=== PATIENT | male | born 1995 | race African-American/Black ===

== ENCOUNTER 2021-04-04 09:40 | Emergency (ER) | payer OTHER, SELFPAY ==
[2021-04-04 10:18] VITALS: PULSE 85; RESP 14; TEMP 36.7; O2SAT 99; BMI 37.5
--- NOTE | 2021-04-04 10:55 | HMH.EDUTC ---
[facility] [place] Clinical Impression: Viral syndrome, Exposure to COVID-19 virus Disposition: Home, Self-Care Condition on Discharge: Good Instructions: DI for COVID-19 (Suspected or Confirmed ), Preventing the Spread of Coronavirus Discharge Instructions Additional Instructions: Drink plenty of fluids. Take tylenol for pain or fever. Return if you begin to have difficulty breathing. Follow up with your regular doctor. GO TO THE ER FOR ANY WORSENING SYMPTOMS Quarantine until you know the results of your covid-19 test. If it is positive, the health department should call you and give you further instructions about your length of Quarantine and other things. Notify your school or workplace of your results and follow their instructions regarding return to work/school. Prescriptions: Brompheniramine/Pseudoephed/Dm [Bromfed Dm Cough Syrup] 5 ml PO Q6HP PRN #240 ml PRN Reason: Cough Transmission Status: Received by [facility] [facility] #[id number] Ondansetron [Zofran 4mg ODT] 4 mg PO Q8HP PRN #20 tab PRN Reason: Nausea Transmission Status: Received by [facility] [facility] #[id number] Referrals: Provider,Referral, [Primary Care Provider] - Forms: Work/School Release Time of Disposition: 11:01 Medical Decision Making - Medical Records Medical records reviewed: No: I reviewed the patient's medical records. - Valeriano Inquiry Pt receiving controlled substance: No Vital Signs: 04/04/21 10:18 04/04/21 10:57 Temperature 98.1 F 98.3 F Temperature Source Oral Pulse Rate 85 Pulse Rate [Left] 85 Respiratory Rate 14 16 Blood Pressure 0/0 L 02 Sat by Pulse Oximetry 99 [facility] [place] HPI - General Stated complaint: Covid test; sore throat; cough Time Seen by Provider: 04/04/21 10:56 Mode of Arrival: Ambulatory Source of Information: Patient Limitations: No Limitations Description of Symptoms (Recalled from Triage Doc. by RN): COVID TEST HEENT Symptoms (Recalled from RN notes): No Resp Symptoms (Recalled from RN notes): No Skin Symptoms (Recalled from RN notes): No MS Symptoms (Recalled from RN notes): No Functional Status (Recalled from RN notes): NA - History of Present Illness Provider Complaint: He states that for the past 2 days he has had nasal drainage, scratchy throat, chilling and body aches. He was exposed to covid-19 about 6 days ago. - Related Data Previous Rx's Medication Instructions Recorded Brompheniramine/Pseudoephed/Dm 5 ml PO Q6HP PRN #240 ml 04/04/21 [Bromfed Dm Cough Syrup] Ondansetron [Zofran 4mg ODT] 4 mg PO Q8HP PRN #20 tab 04/04/21 - Worker's Comp Is this a Worker's Comp case?: No [facility] History - Hepatitis A Screen Drug use history?: No High risk sexual behaviors?: No History of sexually transmitted infection?: No Currently employed?: No Childcare worker?: No Do you have indoor plumbing?: Yes Do you have electricity?: Yes Attestation statement:: This patient has been screened for Hepatitis A risk factors. I have reviewed the patient's past medical history: Yes ROS Obtained: Yes All systems reviewed & no additional complaints - Constitutional Constitutional: Reports system reviewed and no additional complaints, except as docu - Eyes Eyes: Reports system reviewed and no additional complaints, except as docu - ENT Ears, Nose, Mouth, and Throat: Reports system reviewed and no additional complaints, except as docu - Cardiovascular Cardiovascular: Reports system reviewed and no additional complaints, except as docu - Respiratory Respiratory: Reports system reviewed and no additional complaints, except as docu - Gastrointestinal Gastrointestingal: Reports: system reviewed and no additional complaints, except as docu Physical Exam - General General appearance: alert, in no apparent distress - Head Head exam: atraumatic, normocephalic, normal inspection - Eye Eye exam: Present: normal appearance, PERRL, EOMI - ENT ENT exam: Prese
[2021-04-04 10:57] VITALS: BP 0/0; PULSE 85; RESP 16; TEMP 36.8
== END 2021-04-04 11:08 | disposition home or self-care (01) ==
PROVIDERS: Emergency Provider Nurse Practitioner Family
DX: B34.9 Viral infection, unspecified (principal); Z20.822 Contact with and (suspected) exposure to COVID-19
CPT/HCPCS: 99202; G0463; U0003

== ENCOUNTER 2022-10-25 16:14 | Emergency (ER) | payer MEDICAID, SELFPAY ==
[2022-10-25 16:45] VITALS: BP 157/95; PULSE 100; RESP 20; TEMP 38.3; O2SAT 98; BMI 44.4
--- NOTE | 2022-10-25 16:51 | EXP.UTC ---
Discharge Plan Disposition Patient Disposition: Home, Self-Care Condition: Good Prescriptions Prescriptions: New methylprednisolone 4 mg Tablets,Dose Pack 4 mg PO DIRECTED Qty: 21 0RF [id number]-[id number] [Bromfed DM] 2-30-10 mg/5 mL Syrup 5 ml PO Q6H PRN (Reason: Cough) Qty: 240 0RF amoxicillin-pot clavulanate 875-125 mg Tablet 1 tab PO Q12H Qty: 20 0RF Chloraseptic Throat [place] 1.4 % aerosol,spray 4 spray mucous membrane Q4HP PRN (Reason: sore throat) Qty: 177 0RF Referrals Follow up/Referrals: Provider,Referral, MD [Primary Care Provider] - See instructions Activity Restrictions/Add. Instructions Additional Instructions/Restrictions: Drink plenty of fluids. Take tylenol or ibuprofen for pain or fever. Take the medications as directed. Follow up with your regular doctor. GO TO THE ER FOR ANY WORSENING SYMPTOMS Throw your tooth brush away and get a new one. Don't start the oral steroids until tomorrow, since you had the shot here today. Clinical Impressions Clinical Impression: Strep throat Stand Alone Forms Stand Alone Forms: Work/School Release Instructions Patient Instructions: Strep Throat, DI for Strep Throat Discharge ED Provider: Benoit Gonzalez [facility] General Stated complaint: congestion,sore throat,Congestion Time Seen by Provider: 10/25/22 16:51 History of Present Illness Provider Complaint: He states that for the past 2 days he has had a worsening sore throat, chills, and malaise. He states that he feels like he has strep throat and he has been exposed to strep throat. Related Data Previous Rx's Medication Instructions Recorded amoxicillin 875 mg-potassium 1 tab PO Q12H #20 tabs 10/25/22 clavulanate 125 mg tablet thkjqceokslcuqd-ncgorhipcakaknz-YX 5 ml PO Q6H PRN Cough #240 mL 10/25/22 2 mg-30 mg-10 mg/5 mL oral syrup (Bromfed DM) methylprednisolone 4 mg tablets in 4 mg PO DIRECTED #21 tabs 10/25/22 a dose pack phenol 1.4 % mucosal aerosol spray 4 spray mucous membrane Q4HP PRN 10/25/22 (Chloraseptic Throat [place]) sore throat #177 mL Allergies Allergy/AdvReac Type Severity Reaction Status Date / Time No Known Allergies Allergy Verified 10/25/22 17:09 [facility] Disclaimer: The information contained in this section may have been updated after the patient was seen, as this information can be updated by other users. Social History Smoking Status: Never smoker alcohol intake: never current occupational status: employed Travel in the last 8 weeks: None ROS Obtained: Yes All systems reviewed & no additional complaints except as documented Constitutional Constitutional: Reports chills and Reports fever(s) Eyes Eyes: Denies eye discharge ENT Ears, Nose, Mouth, and Throat: Reports as per HPI Cardiovascular Cardiovascular: Denies chest pain Respiratory Respiratory: Denies chest congestion and Reports cough Gastrointestinal Gastrointestingal: Reports nausea; Denies abdominal pain, constipation, cramping, diarrhea or vomiting Musculoskeletal Musculoskeletal: Denies arthralgias Integumentary/Breasts Skin/Breast: Denies rash Neurologic Neurologic: Denies paresthesias Physical Exam General General appearance: alert and in no apparent distress Head Head exam: atraumatic, normocephalic and normal inspection Eye Eye exam: Present normal appearance, PERRL and EOMI ENT ENT exam: Present mucous membranes moist and normal external ear exam Expanded ENT Exam TM/Canal exam: Bilateral TM: erythema and bulging Nose exam: Absent sinus tenderness Mouth exam: Present normal external inspection; Absent drooling Teeth exam: Present normal inspection Throat exam: Present tonsillar erythema, tonsillomegaly and tonsillar exudate Neck Neck exam: Present normal inspection, full ROM and trachea midline; Absent tenderness, meningismus or lymphadenopathy Chest Chest inspection
[2022-10-25 17:00] LABS: UTC Strep Screen (Rapid) Positive (Negative)
[2022-10-25 17:43] VITALS: BP 157/95; PULSE 100; RESP 20; TEMP 38.3; O2SAT 98
== END 2022-10-25 17:42 | disposition home or self-care (01) ==
PROVIDERS: Emergency Provider Nurse Practitioner Family
DX: J02.0 Streptococcal pharyngitis (principal); R53.81 Other malaise; R50.9 Fever, unspecified
CPT/HCPCS: 96372; 87880; 99212; 99214; G0463

== ENCOUNTER 2023-11-02 16:49 | Emergency (ER) | payer MEDICAID, SELFPAY ==
[2023-11-02 16:55] VITALS: BP 143/87; PULSE 65; RESP 20; TEMP 36.7; O2SAT 98; BMI 42.7
[2023-11-02 17:21] VITALS: BP 143/87; PULSE 65; RESP 20; TEMP 36.7; O2SAT 98
--- NOTE | 2023-11-02 17:22 | ED_ITS ---
Discharge Plan Disposition Patient Disposition: Home, Self-Care Condition: Good Prescriptions Prescriptions: New amoxicillin-pot clavulanate 875-125 mg Tablet 1 tab PO Q12H Qty: 20 0RF ibuprofen [IBU] 800 mg tablet 800 mg PO TIDP PRN (Reason: Moderate Pain) Qty: 20 0RF Referrals Follow up/Referrals: Provider,Referral, MD [Primary Care Provider] - See instructions Activity Restrictions/Add. Instructions Additional Instructions/Restrictions: Call dentist tomorrow and make appointment may take you a couple weeks to get in Use dental balls as you was advised in the [facility] Take medication as prescribed Warm salt water rinses may help with tooth pain and infection Clinical Impressions Clinical Impression: Dental infection Instructions Patient Instructions: DI for Tooth Abscess, Tooth Abscess, Amoxicillin and Clavulanic Acid Discharge ED Provider: Carola Rice [facility] [place] HPI General Stated complaint: possible tooth infection Mode of Arrival: Ambulatory Source of Information: Patient Limitations: No Limitations Time Seen by Provider: 11/02/23 17:22 Description of Symptoms (Recalled from Triage Doc. by RN): PATIENT C/O RIGHT UPPER TOOTHACHE AND HEADACHE THAT STARTED IN THE PAST WEEK HEENT Symptoms (Recalled from RN notes): Yes Resp Symptoms (Recalled from RN notes): No Skin Symptoms (Recalled from RN notes): No MS Symptoms (Recalled from RN notes): No Functional Status (Recalled from RN notes): WNL History of Present Illness Provider Complaint: Patient states that he has been having pain in his right upper gumline where he has a tooth that is broken off at the gumline and having some swelling around the gum area States that it has got worse over the last few days States that he was worried it was getting infected worse so he came in Related Data Previous Rx's Medication Instructions Recorded amoxicillin 875 mg-potassium 1 tab PO Q12H #20 tabs 11/02/23 clavulanate 125 mg tablet ibuprofen 800 mg tablet (IBU) 800 mg PO TIDP PRN Moderate Pain 11/02/23 #20 tabs Allergies Allergy/AdvReac Type Severity Reaction Status Date / Time No Known Allergies Allergy Verified 10/25/22 17:09 Worker's Comp Is this a Worker's Comp case?: No [facility] Disclaimer: The information contained in this section may have been updated after the patient was seen, as this information can be updated by other users. Social History (Updated 10/25/22 @ 21:03 by Benoit Gonzalez APRN) Smoking Status: Never smoker alcohol intake: never current occupational status: employed Travel in the last 8 weeks: None ROS Obtained: Yes All systems reviewed & no additional complaints except as documented and Yes Systems reviewed as appropriate & no additional complaints except as documented Constitutional Constitutional: Reports system reviewed and no additional complaints, except as documented and Reports as per HPI ENT Ears, Nose, Mouth, and Throat: Reports system reviewed and no additional complaints, except as documented, Reports as per HPI and Reports dental pain Cardiovascular Cardiovascular: Reports system reviewed and no additional complaints, except as documented and Reports as per HPI Respiratory Respiratory: Reports system reviewed and no additional complaints, except as documented and Reports as per HPI Gastrointestinal Gastrointestingal: Reports system reviewed and no additional complaints, except as documented and as per HPI Physical Exam General General appearance: alert and in no apparent distress ENT ENT exam: Present mucous membranes moist Expanded ENT Exam Teeth exam: Present fractured tooth # (tooth broken off at gum line) and gingival swelling (mild swelling and redness ) Respiratory Respiratory exam: Present normal lung sounds bilaterally; Absent respiratory distress or wheezes Cardiovascular Cardiovascular exam: Present regular rate, normal rhythm and normal heart sounds Neurological Exam Neurological exam: Present alert, oriented X3 and normal gait Medical Decision Making Valeriano Inquiry Pt receiving controlled substance: No Valeriano was queried for this patient: No Vital Signs: 11/02/23 16:55 11/02/23 17:21 Temperature 98.1 F 98.1 F Temperature Source Oral Pulse Rate 65 Pulse Rate [Left Brachial] 65 Respiratory Rate 20 20 Blood Pressure 143/87 H Blood Pressure [Left Arm] 143/87 H Blood Pressure Mean [Left Arm] 105 Blood Pressure Source [Left Arm] Automatic Cuff Blood Pressure Position [Left Arm] Sitting 02 Sat by Pulse Oximetry 98 Oxygen Delivery Method Room Air Lab Data Lab results reviewed: Yes I reviewed the patient's lab results.
== END 2023-11-02 17:38 | disposition home or self-care (01) ==
PROVIDERS: Emergency Provider Nurse Practitioner
DX: K04.7 Periapical abscess without sinus (principal); R51.9 Headache, unspecified
CPT/HCPCS: 99212; 99214; G0463

== ENCOUNTER 2024-02-10 12:08 | Emergency (ER) | payer SELFPAY ==
[2024-02-10 12:14] VITALS: BP 155/83; PULSE 64; RESP 18; O2SAT 100; BMI 39.7
--- NOTE | 2024-02-10 12:23 | ED_ITS ---
Discharge Plan Disposition Patient Disposition: Home, Self-Care Prescriptions Prescriptions: New amoxicillin-pot clavulanate 875-125 mg tablet 1 tab PO BID 7 Days Qty: 14 0RF No Action amoxicillin-pot clavulanate 875-125 mg Tablet 1 tab PO Q12H Qty: 20 0RF ibuprofen [IBU] 800 mg tablet 800 mg PO TIDP PRN (Reason: Moderate Pain) Qty: 20 0RF Referrals Follow up/Referrals: Provider,Referral, MD [Primary Care Provider] - See instructions Activity Restrictions/Add. Instructions Additional Instructions/Restrictions: Augmentin twice daily for full course. Contact dentistry to see if you can have tooth examined. If you have any other concerning signs or symptoms, return to the emergency department for further evaluation. Clinical Impressions Clinical Impression: Toothache Discharge ED Provider: Abdulaziz Ace General Adult HPI General Chief complaint: Dental/Oral Stated complaint: tooth pain, h/a Time Seen by Provider: 02/10/24 12:16 Mode of Arrival: Ambulatory Source of Information: Patient Limitations: No Limitations Description of Symptoms (Recalled from ER Triage Doc. by RN): Patient reports infected tooth on the upper right side. History of Present Illness HPI narrative: Please note that above description of symptoms, in this electronic medical record under categorization of recalled from ER triage doctor by RN are reflective of an initial nursing assessment, however, is not reflective of my full history and physical exam that was personally taken and clarified. Consequentially, this preceding description of symptoms, which may include the patient's categorized chief complaint in the EMR, do not reflect my personal clinical impression, and the ultimate description of history of present illness and patient stated complaints should be deferred to this section of the note. Unless stated otherwise or congruent with this section of the note, additional signs, symptoms, or incongruence should be interpreted as inaccurate with my clinical impression. Related Data Previous Rx's Medication Instructions Recorded amoxicillin 875 mg-potassium 1 tab PO Q12H #20 tabs 11/02/23 clavulanate 125 mg tablet ibuprofen 800 mg tablet (IBU) 800 mg PO TIDP PRN Moderate Pain 11/02/23 #20 tabs amoxicillin 875 mg-potassium 1 tab PO BID 7 days #14 tabs 02/10/24 clavulanate 125 mg tablet Allergies Allergy/AdvReac Type Severity Reaction Status Date / Time No Known Allergies Allergy Verified 10/25/22 17:09 PFSH PFSH Disclaimer: The information contained in this section may have been updated after the patient was seen, as this information can be updated by other users. Social History (Updated 10/25/22 @ 21:03 by Benoit Gonzalez APRN) Smoking Status: Never smoker alcohol intake: never current occupational status: employed Travel in the last 8 weeks: None ROS Obtained: Yes All systems reviewed & no additional complaints except as documented Physical Exam General General appearance: alert Head Head exam: atraumatic and normocephalic Eye Eye exam: Present normal appearance, PERRL and EOMI ENT ENT exam: Present other (2-3 broken and rotted. Tenderness and erythema at base. No evidence of drainable abscess.) Neck Neck exam: Present normal inspection, full ROM and trachea midline Respiratory Respiratory exam: Absent respiratory distress, wheezes, stridor, accessory muscle use or prolonged expiratory phase Cardiovascular Cardiovascular exam: Present other (Pulses equal symmetric in upper and lower extremities) Abdominal Exam Abdominal exam: Present soft; Absent distention, tenderness or pulsatile mass Extremities Exam Extremities exam: Absent edema Neurological Exam Neurological exam: Present alert, oriented X3 and CN II-XII intact; Absent motor sensory deficit Skin Skin exam: Present warm and dry; Absent diaphoresis or erythema Medical Decision Making Medical Records Medical records reviewed: Yes I reviewed the patient's medical records. Valeriano Inquiry Pt receiving controlled substance: No Valeriano was queried for this patient: No Vital Signs: 02/10/24 12:14 Pulse Rate [Right Brachial] 64 Respiratory Rate 18 Blood Pressure [Right Arm] 155/83 H Blood Pressure Mean [Right Arm] 107 02 Sat by Pulse Oximetry 100 Oxygen Delivery Method Room Air Orders (Tests/Meds): ED MEDICATIONS Discontinued Medications Generic Name Dose Route Start Last Admin Trade Name Atulq PRN Reason Stop Dose Admin Lidocaine HCl 15 ml 02/10/24 12:23 Lidocaine 2% Viscous Kallie 15ml Udc PO 02/10/24 12:24 ONCE ONE Medical Decision Narrative: 28-year-old male with history of broken and decayed tooth #3 presenting with tooth ache. States that he had root canal done in the past, after the root canal, the tooth broke and rotted. He has been having pain in that tooth for about 3 months. Today, started having pain that shoots up his face toward his right bahai. Took migraine medication, helped modestly. No fevers or chills, any other concerning signs or symptoms. History obtained with patient. On arrival, he is very well-appearing. Tooth #3 broken, cracked, rotted to the gumline. Tenderness around the area, erythema, no evidence of drainable abscess. Patient given dental balls for this. Because no systemic signs or symptoms and very well-appearing, deemed appropriate for outpatient management without hematologic workup including CBC or chemistry, or CT of the face with contrast to identify potential abscess, although these were considered. Because patient at baseline without signs or symptoms of clinical decompensation, deemed appropriate for discharge. I discussed my clinical impression with patient and answered all questions. At this time, the evidence for any other entities in the differential is insufficient to warrant any further testing or ED observation. This was explained as well. Advisory was given that persistent or worsening symptoms require further evaluation. I confirmed the understanding of this discussion. Adult Specialist disclaimer Much of this encounter note is an electronic social work program coordinator spoken language to printed text. Electronic social work program coordinator of the spoken language may permit errors. Although I have reviewed the note, some errors may still exist. Critical Care Critical Care Time Critical Care Time: No
[2024-02-10 12:43] VITALS: BP 156/91; PULSE 73; RESP 20; TEMP 37; O2SAT 97
[2024-02-10] MEDS: LIDOCAINE 2% VISCOUS SOL 15ML UDC 15 ML PO (12:46)
== END 2024-02-10 12:51 | disposition home or self-care (01) ==
PROVIDERS: Emergency Provider Emergency Medicine
DX: R51.9 Headache, unspecified; K08.89 Other specified disorders of teeth and supporting structures
CPT/HCPCS: 99283